=== PATIENT | female | born 1955 | race Caucasian/White ===

== ENCOUNTER 2019-09-21 23:10 | Emergency (ER) | payer MEDICAID ==
[~2019-09-21] VITALS: Ht 154.9 cm; Wt 64.0 kg
[2019-09-22 01:12] VITALS: BP 154/71
== END 2019-09-22 02:21 | disposition home or self-care (01) ==
LOC: ER 23:10
DX: F41.9 Anxiety disorder, unspecified (principal); Z53.21 Procedure and treatment not carried out due to patient leaving prior to being seen by health care provider
CPT/HCPCS: 99283